=== PATIENT | female | born 1940 | race Hispanic/Latino ===

== ENCOUNTER 2018-10-09 21:56 | Emergency (ER) | payer MEDICARE, BC ==
[~2018-10-09] VITALS: Ht 157.5 cm; Wt 85.3 kg
--- OUTSIDE RECORDS SUMMARY | 2018-10-09 21:59 | XMS REPORT ---
Author Author [facility] Address Unknown Phone Unavailable Care Team Providers Care Rails Developer Name Role Phone Unavailable Unavailable Problems This patient has no known problems. Allergies, Adverse Reactions, Alerts This patient has no known allergies or adverse reactions. Medications This patient has no known medications. Encounters Start Date/Time End Date/Time Encounter Type Admission Type Attending [facility] Facility Care Department Encounter ID 2018-09-13 12:42:00 2018-09-13 12:42:00 Outpatient [id number]
--- OUTSIDE RECORDS SUMMARY | 2018-10-09 21:59 | XMS REPORT | Summary of Care ---
Author Author BRI Godinez, ARCENIO Organization Unknown Address Unknown Phone Unavailable Care Team Providers Care Senior Sql Server Dba Name Role Phone BRI Godinez, ARCENIO Unavailable Unavailable RIK SALINAS, MINNIE Huffman Unavailable Unavailable BRODIE SAMANIEGO, ULISES WALLACE Unavailable Unavailable Unavailable Unavailable Functional Status Name Dates Details Functional status health issues are not documented Status: Name Dates Details Cognitive status health issues are not documented Status: Problems Name Dates Details Extremity pain (729.5, M79.609) Status: Active Stress fracture of left tibia, initial encounter (733.93, M84.362A) Status: Active Hyperlipidemia (272.4, E78.5) Status: Active Shortness of breath (786.05, R06.02) Status: Active Medications Name Dates Details Aspirin 81 MG Oral Tablet Delayed Release TAKE 1 TABLET BY MOUTH EVERY DAY Quantity: 90 * Start : 17-Aug-2017 Active Celecoxib 200 MG Oral Capsule TAKE 1 CAPSULE DAILY WITH A MEAL. * Refills: 0 * Start : 17-Aug-2017 Active amLODIPine Besylate 5 MG Oral Tablet TAKE 1 TABLET DAILY. * Refills: 0 * Start : 17-Aug-2017 Active Klor-Con 10 10 MEQ Oral Tablet Extended Release TAKE 1 TABLET DAILY. * Refills: 0 * Start : 17-Aug-2017 Active Atorvastatin Calcium 10 MG Oral Tablet TAKE 1 TABLET AT BEDTIME. * Refills: 0 * Start : 17-Aug-2017 Active Olmesartan Medoxomil-HCTZ 40-25 MG Oral Tablet TAKE 1 TABLET DAILY. * Refills: 0 * Start : 17-Aug-2017 Active Folic Acid 1 MG Oral Tablet qd * Refills: 0 * Start : 17-Aug-2017 Active DULoxetine HCl - 60 MG Oral Capsule Delayed Release Particles qd * Refills: 0 * Start : 17-Aug-2017 Active Methotrexate Sodium 2.5 MG Oral Tablet TAKE 7 TABLETS WEEKLY. * Refills: 0 * Start : 17-Aug-2017 Active Alendronate Sodium 70 MG Oral Tablet TAKE 1 TABLET ONCE WEEKLY. * Refills: 0 * Start : 17-Aug-2017 Active Omeprazole 20 MG Oral Tablet Delayed Release TAKE 2 TABLET DAILY * Refills: 0 * Start : 17-Aug-2017 Active Cimzia 2 X 200 MG Subcutaneous Kit once a month * Refills: 0 * Start : 17-Aug-2017 Active Furosemide 20 MG Oral Tablet TAKE ONE TABLET BY MOUTH EVERY MORNING * Quantity: 90 Refills: 0 ARCENIO GREGORY M.D. * Start : 17-Aug-2017 Active Allergies and Adverse Reactions Name Dates Details Codeine Derivatives (Allergy) Status: Active Darvocet-N 50 TABS (Allergy) Status: Active Demerol TABS (Allergy) Status: Active Vicodin TABS (Allergy) Status: Active Latex (Allergy) Status: Active Past Medical History Name Dates Details History of malignant neoplasm of colon (V10.05, Z85.038) Status: Resolved Procedures Procedure Dates Details History of Colon surgery Completed History of Tonsillectomy Completed History of Gallbladder surgery Completed History of Hysterectomy Completed History of Hysterectomy total abdominal with removal of both ovaries Completed History of Foot surgery Completed History of Cataract surgery Completed History of Salpingo-oophorectomy bilateral Completed Immunization Name Dates Details Immunizations not documented Family History Name Dates Details Family history of cardiac disorder (V17.49, Z82.49) Comments: Family History Status: Active Name Dates Details Family history of diabetes mellitus (V18.0, Z83.3) Status: Active Social History Name Dates Details Unknown if ever smoked Vital Signs Date Test Result Details No Known Vitals to report Results Date Description Value Details Results not documented Plan of Care Name Dates Details Planned Observations Planned Goals not documented Planned Encounters Appointment; ARCENIO GREGORY M.D. On: 17-Oct-2018 11:00 Interventions Provided Medication Changes* Furosemide 20 MG Oral Tablet - Renew Instructions Name Dates Details Instructions not documented Encounters Appointment; ARCENIO GREGORY M.D. Encounter Diagnosis: Problem not documented On: 17-Aug-2017 14:30 Appointment; SE, NUCLEAR Encounter Diagnosis: Problem not documented On: 22-Aug-2017 9:45 Appointment; ARCENIO GREOGRY M.D. Encounter Diagnosis: Problem not documented On: 06-Sep-2017 15:00 Appointment; ARCENIO GREGORY M.D. Encounter Diagnosis: Problem not documented On: 05-Mar-2018 14:00
[2018-10-09] MEDS ORDERED: CLONIDINE HCL 0.1 MG TAB ONE (22:18)
[2018-10-09] MEDS ORDERED: KETOROLAC TROMETHAMINE 30 MG/ML VIAL ONE (22:18)
[2018-10-09] MEDS ORDERED: ACETAMINOPHEN 325 MG TAB ONE (22:18)
[2018-10-09] MEDS ORDERED: KETOROLAC TROMETHAMINE 30 MG/ML VIAL IV ONE (22:30)
[2018-10-09] MEDS ORDERED: CLONIDINE HCL 0.2 MG TAB PO ONE (22:30)
[2018-10-09] MEDS ORDERED: ACETAMINOPHEN 325 MG TAB PO ONE (22:30)
--- NOTE | 2018-10-09 23:10 | Diagnostic Imaging Report ---
EXAMINATION: Head CT without contrast. HISTORY:Dizziness, headache and high blood pressure. COMPARISON:None. TECHNIQUE: Multidetector axial images were obtained from the foramen magnum to the vertex without contrast. The images were reconstructed using brain and bone algorithms. Thin section brain images were reformatted into coronal and sagittal planes. Dose modulation, iterative reconstruction, and/or weight based adjustment of the mA/kV was utilized to reduce the radiation dose to as low as reasonably achievable. Intravenous contrast: None IMAGE QUALITY: Acceptable. FINDINGS: Skull/scalp: No lytic or blastic. lesions. No surgical changes. Parenchyma: Nonspecific few, scattered supratentorial white matter hypodensity are likely related to small vessel ischemic changes. No acute hemorrhage, mass or acute major vascular territorial infarct. Arteries: No density suggestive of thrombosis. Dural sinuses: No abnormal density suggestive of thrombosis. Ventricles: No hydrocephalus or displacement. Mild compensated dilatation due to volume loss. Extra-axial spaces: No abnormal density. Brain volume: Normal for age. Craniocervical junction: No mass, Chiari malformation, or basilar invagination. Sella: No mass. Paranasal/mastoid sinuses: Imaged portions unremarkable. IMPRESSION: No acute intracranial abnormality. Minimal supratentorial white matter microvascular ischemic changes. Mild generalized cerebral volume loss. Signed by: Dr. Nara Berg M.D. on 10/09/2018 11:07 PM
--- NOTE | 2018-10-10 00:38 | NUR ---
IV DC'D. NO REDNESS OR SWELLING NOTED, CATH INTACT. PT STATES SHE IS FEELING BETTER, CONTINUES TO C/O OF HEADACHE BUT IS BETTER. SON AT BEDSIDE.
[2018-10-10 01:57] VITALS: BP 146/69
== END 2018-10-10 02:27 | disposition home or self-care (01) ==
LOC: FSED 21:56
DX: I10 Essential (primary) hypertension (principal); R51 Headache; E66.9 Obesity, unspecified; Z68.34 Body mass index [BMI] 34.0-34.9, adult; Z88.6 Allergy status to analgesic agent; Z88.5 Allergy status to narcotic agent
CPT/HCPCS: 70450; 80053; 81003; 85025; 93005; 99284; J1885